=== PATIENT | female | born 1960 | race Caucasian/White ===

== ENCOUNTER → 2024-01-08 11:14 | Outpatient (REF) | payer OTHER, SELFPAY | LOC: HWRAD 11:14 | PROVIDERS: ATTENDING PHYSICIAN Hospitalist; FAMILY PHYSICIAN Physician Assistant Medical | DX: M80.00XA Age-related osteoporosis with current pathological fracture, unspecified site, initial encounter for fracture (principal) | CPT/HCPCS: 77080 ==

== ENCOUNTER 2024-05-27 09:25 | Emergency (ER) | payer BC, MEDICARE, SELFPAY ==
[2024-05-27 09:34] VITALS: BP 160/108
[2024-05-27 10:06] LABS: % Basophils 0.4 % (0-2); % Eosinophils 1.6 % (0-6); % Immature Granulocytes 0.3 % (0-0.5); % Lymphocytes 35.3 % (20.5-51.1); % Monocytes 6.6 % (1.7-9.3); % Neutrophils 55.8 % (42.2-75.2); Absolute Eosinophils 0.1 10^3/uL (0-0.7); Absolute Lymphocytes 2.5 10^3/uL (1.2-3.4); Absolute Monocytes 0.5 10^3/uL (0.1-0.6); Absolute Neutrophils 3.9 10^3/uL (1.4-6.5); Hematocrit 38.7 % (37.0-47.0); Mean Corp Hgb Conc. 33.6 g/dL (33.0-37.0); Mean Corpuscular Hgb 31.8 pg (27.0-31.0); Mean Corpuscular Volume 94.6 fL (81.0-99.0); Mean Platelet Volume 11.5 fL (7.4-10.4); Nucleated Red Blood Cells % 0 %; Platelet Count 247 10^3/uL (130-400); Red Blood Cell Count 4.09 10^6/uL (4.20-5.40); Red Cell Dist. Width 12.5 % (11.5-14.5)
[2024-05-27 10:20] LABS: ALT (SGPT) 29 U/L (0-35); AST (SGOT) 27 U/L (14-36); Albumin 4.8 g/dl (3.5-5.0); Alkaline Phosphatase 55 U/L (38-126); Blood Urea Nitrogen 12 mg/dl (7-17); Calcium 8.8 mg/dl (8.4-10.2); Carbon Dioxide 29 mmol/L (22-30); Chloride 99 mmol/L (98-107); Glucose 118 mg/dl (70-99); Potassium 3.7 mmol/L (3.5-5.1); Sodium 138 mmol/L (135-145); Total Bilirubin 1.3 mg/dl (0.2-1.3); Total Protein 7.3 g/dl (6.3-8.2); eGFR > 60.00
--- NOTE | 2024-05-27 11:19 | ED.GENMED ---
History of Present Illness
General
Chief Complaint: Blood Pressure Problem
Source: patient
Exam Limitations: none
Time Seen by Provider: 05/27/24 11:14
Nursing documentation reviewed up to this point in time: agreed with
History of Present Illness
History of Present Illness:
64 y/o F
h/o HTN
went to on 05/21 and was diagnosed with flu a
bp then 160/100 and hr elevated
she has been checking bp and pulse and both are elevated
was on tamiflu, completed yesterday, no diarrhea
not eating well
but is tolerating liquids well
didn't take her lisinopril today
pt says that she doesn't feel right
she was concerned about her heart
she has had pretty good resollution of flu symptoms
dneies chest pain, sore throat, cough, vomiting, diarrhea
no h/o Afib
Past History
Past History
ED Past Medical History: HTN, Hypercholesterolemia and Other (Colitis)
ED Past Surgical History: Gynecological (Hysterectomy), Orthopedic and Urological
Social History
Tobacco: Non-smoker
Alcohol: Occasional
Personal:
Living: with family
Review of Systems
Review of Systems
Allergies reviewed?: Yes
All Other Systems: Not applicable
Phy Exam
Physical Exam
Physical Exam:
GENERAL: Alert , in no apparent distress, nontoxic appearing
EYE: pupils equal and reactive
NECK: Supple
ENT: o/p clr, slightly dry mouth
CARDIAC: Regular rate and rhythm hr 90s-100s
LUNGS: Clear breath sounds bilaterally, no acute respiratory distress, no wheezes/rales/rhonchi
ABDOMEN: Soft, without focal tenderness, no r/g, no cvat, normal bowel sounds
NEUROLOGICAL: Alert and oriented, no focal neuro deficits
SKIN: Warm and dry, skin intact.
MUSCULOSKELETAL: No edema, well perfused. neg edinson's sign
PSYCH: Normal and appropriate interaction.
Course
Orders/Labs/Results
Orders:
Orders
05/27/24 09:38
Electrocardiogram (*1) Urgent
Reason for Study: Hypertension, Benign
05/27/24 09:39
EKG- Treatment ONCE
CXR2 [CR Chest - 2 Views ] Urgent
Comment: mild cough
Reason For Exam: dx with flu six days ago
05/27/24 09:50
Complete Blood Count/With Diff Urgent
Comprehensive Metabolic Panel Urgent
Magnesium Urgent
TSH Reflex To Free T4 Urgent
Comment: ADD
05/27/24 11:48
D-Dimer Urgent
Troponin I Urgent
05/27/24 12:10
Add On- LAB Urgent
Tests Added?: tsh reflex t4, magnesium
05/27/24 13:45
0.9% Sodium Chloride 1000 ml [Nss] 1,000 ml IV BOLUS
Magnesium Sulfate 2 Gram/50 ml [Magnesium Sulfate] 2 gram in 50 ml IV NOW
Abnormal Lab Results
05/27/24 05/27/24
09:50 11:48
RBC 4.09 L 10^6/uL
(4.20-5.40)
MCH 31.8 H pg
(27.0-31.0)
MPV 11.5 H fL
(7.4-10.4)
D-Dimer 0.56 H ug/mlFEU
(0.00-0.50)
Creatinine 0.5 L mg/dL
(0.6-1.0)
Glucose 118 H mg/dl
(70-99)
Magnesium 0.9 L* mg/dl
(1.6-2.3)
05/27/24 09:50
05/27/24 09:50
Vital Signs
Pulse: 100
Blood pressure: 156/87
Initial and Last Documented VS:
Initial Vital Signs
Temp Pulse Resp BP Pulse Ox
36.7 C 120 18 160/108 98
05/27/24 09:34 05/27/24 09:34 05/27/24 09:34 05/27/24 09:34 05/27/24 09:34
Last Documented Vital Signs
Temp Pulse Resp BP Pulse Ox
36.7 C 100 18 156/87 98
05/27/24 09:34 05/27/24 11:27 05/27/24 09:34 05/27/24 11:27 05/27/24 09:34
MDM/Problems Addressed
Differential Diagnosis Includes:
tachycardia, PE, dehydration, myocarditis
MDM/Problems Addressed:
64 y/o F htn, hld
flu A lsat week
completed tamiflu
mimimal side effects
but bp and hr seem more elevated thanusual
has been mointroing at home with bp readings 160/100 and hr 110s
she doesn't feel sob
but she says she doesn't feel herself
no cp, passing out, exertional dyspnea
pt has not had fever
she looks well
no distress
bp repeated 150/80s
didn't take her lisinopril, i let her take her dose hre
hr 100s and sinus tach on ekg without changes
d dimer was 0.56 age adjusted neg
trop neg
k normal but mag low
pt takes calcium daily but has missed some doses
dw ed atteding dr. mcdermott initially and then dr. sandoval due to chnge of shift
will replete mag and ivf and ilkeyl d/c hoem
doin gwell
1530
d/c home
*Critical Care Note
Total Time (30-74mins, 75-104mins- exclusive of procedures): Not Applicable
ED Attending Note
-
Portions of this chart may have been created with voice recognition software.� Occasional wrong word or��sound alike� substitutions may have occurred due to the inherent limitations of voice recognition software.
Discharge Plan
Departure
Discharge Problem:
Tachycardia, Hypomagnesemia, HTN (hypertension)
Instructions: Tachycardia, High Blood Pressure (DC), Hypomagnesemia
Prescriptions:
No Action
atorvastatin 20 MG tablet
20 mg PO DAILY
aspirin 81 MG tablet,delayed release (DR/EC)
81 mg PO DAILY
calcium carbonate [Oyster Shell Calcium 500] 500 MG tablet
500 mg PO DAILY
lisinopril 10 MG tablet
10 mg PO DAILY
docusate sodium 100 MG capsule
100 mg PO DAILYPRN PRN (Reason: CONSITPATION)
omeprazole 20 MG capsule,delayed release(DR/EC)
20 mg PO DAILY
magnesium 200 MG tablet
200 mg PO Q48H
multivitamin with folic acid [Tab-A-Deysi] 1 TABLET tablet
1 tab PO DAILY
amoxicillin-pot clavulanate 1 TABLET tablet
1 tab PO Q12 Qty: 20 0RF
Referrals:
Kira Garcia PA-C [Family Provider] - Follow up in 2-3 days
Activity Restrictions/Additional Instructions:
Your blood work showed that your magnesium was low. We gave you some magnesium. Please have this rechecked or followed up. Your heart rate was above 100 but it improved with fluids. You should follow-up with your doctor this week. Your blood
pressure was mildly high, you can continue to check it once or twice a day and take the numbers to your family doctor.
Make sure that you eat and drink normally. Return for passing out, severe worsening of symptoms like shortness of breath, chest pain, weakness, etc. and return to the ER as needed.
Interventions
Interventions:
*Risk Screen - Suicide Last Done: 05/27/24 09:34
*General Assessment Last Done: 05/27/24 13:27
*Neglect/Abuse Screening Last Done: 05/27/24 09:34
ED- Cardiac Assessment Last Done: 05/27/24 11:48
ED- Neurological Assessment Last Done: 05/27/24 11:48
ED- Pulmonary Assessment Last Done: 05/27/24 11:48
Discharge Date and Time
Print Language: GREEK
[2024-05-27 12:13] LABS: D-Dimer 0.56 ug/mlFEU (0.00-0.50)
[2024-05-27 12:33] LABS: Troponin I < 0.012 ng/ml
[2024-05-27 13:30] LABS: Magnesium 0.9 mg/dl (1.6-2.3)
[2024-05-27] MEDS: NSS 1000 IV (14:07)
[2024-05-27] MEDS: MAGNESIUM SULFATE 50 IV (14:07)
[2024-05-27 15:34] LABS: TSH Reflex To Free T4 2.06 uIU/ml (0.47-4.68)
[2024-05-27 16:14] VITALS: BP 140/78
== END 2024-05-27 16:15 | disposition home or self-care (01) ==
LOC: EMR 09:25
PROVIDERS: Physician Assistant; EMERGENCY PHYSICIAN Student in an Organized Health Care Education/Training Program; FAMILY PHYSICIAN Physician Assistant Medical
DX: R00.0 Tachycardia, unspecified (principal); E83.42 Hypomagnesemia; I10 Essential (primary) hypertension; E78.00 Pure hypercholesterolemia, unspecified; Z90.710 Acquired absence of both cervix and uterus
CPT/HCPCS: 99283; 96365; 96366; 71046; 80053; 83735; 84443; 84484; 85025; 85379; 93005

== ENCOUNTER → 2024-07-09 06:59 | Outpatient (REF) | payer MEDICARE, BC, SELFPAY | LOC: HWRAD 06:59 | PROVIDERS: ATTENDING PHYSICIAN Internal Medicine Gastroenterology; FAMILY PHYSICIAN Physician Assistant Medical | DX: R74.01 Elevation of levels of liver transaminase levels (principal) | CPT/HCPCS: 76700 ==

== ENCOUNTER → 2024-09-19 10:56 | Outpatient (REF) | payer MEDICARE, BC, SELFPAY | LOC: HWWDC 10:56 | PROVIDERS: ATTENDING PHYSICIAN Obstetrics & Gynecology Gynecology; FAMILY PHYSICIAN Physician Assistant Medical | DX: Z12.39 Encounter for other screening for malignant neoplasm of breast (principal) | CPT/HCPCS: 77063; 77067 ==